=== PATIENT | female | born 1950 | race Caucasian/White ===

== ENCOUNTER 2017-09-26 21:59 | Emergency (ER) | payer BC, MEDICARE ==
[~2017-09-26] VITALS: Ht 162.6 cm; Wt 72.6 kg
[~2017-09-26 21:59] MED LIST: AMOX875 PO; ANTOXYBENA OT; ASPI325 PO; BUPR75 PO; CELE100 PO; CELE200 PO; CHOL10002 PO; DOCU100 PO; GABA300 PO; NAPR500 PO; OXYACE5T PO; PRAV10 PO; PRAV20 PO; Percocet 5-3251 EACH PO; RXANTBENOT AU; RXOXYACE PO
[2017-09-26 22:50] LABS: Influenza A Negative (NEGATIVE); Influenza B Positive (NEGATIVE)
[2017-09-26] MEDS ORDERED: Mucinex600 MG PO (23:12)
[2017-09-26] MEDS ORDERED: Cheratussin AC118 ML PO (23:12)
[2017-09-26] MEDS ORDERED: Keflex500 MG PO (23:12)
[2017-09-26] MEDS ORDERED: Pseudoephedrine30 MG PO (23:12)
[2018-06-01] MEDS ORDERED: Lomotil Tablet1 EACH PO (14:48)
[2018-06-01] MEDS ORDERED: HYOS.125 SL (14:48)
== END 2017-09-26 23:43 | disposition home or self-care (01) ==
LOC: ER 21:59
PROVIDERS: Physician Assistant
DX: J10.1 Influenza due to other identified influenza virus with other respiratory manifestations (principal); B95.4 Other streptococcus as the cause of diseases classified elsewhere; Z88.0 Allergy status to penicillin; Z88.2 Allergy status to sulfonamides; Z88.5 Allergy status to narcotic agent; Z79.899 Other long term (current) drug therapy; Z87.891 Personal history of nicotine dependence
CPT/HCPCS: 87430; 87804; 99283

== ENCOUNTER 2019-03-17 12:05 | Day surgery (SDC) | payer BC, MEDICARE ==
[~2019-03-17 12:05] MED LIST changes: +Cheratussin AC118 ML PO; +HYOS.125 SL; +Keflex500 MG PO; +Lomotil Tablet1 EACH PO; +Mucinex600 MG PO; +Pseudoephedrine30 MG PO
[2019-03-17] MEDS ORDERED: Ferosul325 MG PO (13:17)
[2019-03-17] MEDS ORDERED: TERB250 PO (13:18)
[2019-03-17] MEDS ORDERED: OMEPRAZOLE20 MG PO (13:19)
[2019-03-17] MEDS ORDERED: BUDE.25 PO (13:20)
[2019-03-17] MEDS ORDERED: ESCI10 PO (13:22)
[2019-03-17 17:59] LABS: Anion Gap 3 mmol/L (6-16); Blood Urea Nitrogen 11 mg/dL (8-24); Bun/Creatinine Ratio 21.5 (12.0-20.0); CO2, Blood 29 mmol/L (21-32); Calcium, Blood 8.2 mg/dL (8.5-10.1); Chloride, Blood 110 mmol/L (98-108); Creatinine, Blood 0.51 mg/dL (0.40-1.00); Glomerular Filtration Rate >60 (60-); Glucose, Blood 80 mg/dL (70-99); Sodium, Blood 142 mmol/L (136-145)
[2019-03-17 18:02] LABS: Potassium, Blood 4.6 mmol/L (3.5-5.5)
== END 2019-03-17 17:12 | disposition home or self-care (01) ==
LOC: ATC 12:05
PROVIDERS: Nurse Practitioner Family
DX: E87.6 Hypokalemia (principal); K50.90 Crohn's disease, unspecified, without complications
CPT/HCPCS: 80048; 96361; 96365; 96366; J3480; J7030

== ENCOUNTER 2019-06-14 08:12 | Day surgery (SDC) | payer BC, MEDICARE ==
[~2019-06-14 08:12] MED LIST changes: +BUDE.25 PO; +ESCI10 PO; +Ferosul325 MG PO; +Hydrochlorothia25 MG PO; +OMEPRAZOLE20 MG PO; +POTCHL20ER PO; +TERB250 PO
== END 2019-06-14 23:13 | disposition home or self-care (01) ==
LOC: PRE 08:12 → LAB 08:12 → PRE 23:13
DX: M17.11 Unilateral primary osteoarthritis, right knee (principal); Z01.818 Encounter for other preprocedural examination
CPT/HCPCS: 36415; 86850; 86900; 86901

== ENCOUNTER 2019-06-15 05:44 | Day surgery (SDC) | payer BC, MEDICARE ==
[~2019-06-15] VITALS: Ht 162.6 cm; Wt 76.7 kg
--- NOTE | 2019-06-15 06:33 | NUR ---
History, Chart, Medications and Allergies reviewed before start of procedure. Patient confirms NPO status and agrees with scheduled surgery.
--- NOTE | 2019-06-15 06:56 | NUR ---
NOZIN [employer]IST CHEMISTRY X3 AMPULES TO NARES BILAT.
--- NOTE | 2019-06-15 07:12 | NUR ---
KNEE HIGH LINDSEY HOSE AND CALF PAS TO LLE.
--- NOTE | 2019-06-15 18:07 | NUR ---
SHIFT SUMMARY PT WORKED WITH THERAPY, PAIN WELL CONTROLLED, PT REPEATS SELF AND IS SLIGHTLY GROGGY SO DISCUSSED CUTTING BACK TO 1 OXYCODONE NEXT DOSE GIVEN. BED ALARM PLACED. TOLERATING DIET. VOID x 2.
[2019-06-16 04:32] LABS: BASOPHILS ABSOLUTE AUTO 0.02 K/mm3 (0.00-0.23); BASOPHILS PERCENT AUTO 0 % (0-2); EOSINOPHILS ABSOLUTE AUTO 0.11 K/mm3 (0.00-0.68); EOSINOPHILS PERCENT AUTO 1 % (0-6); Hematocrit 32.1 % (33.0-51.0); Hemoglobin 9.9 g/dL (11.5-16.0); IMMATURE GRAN ABSOLUTE AUTO 0.04 K/mm3 (0.00-0.10); IMMATURE GRAN PERCENT AUTO 0 % (0-1); LYMPHOCYTES ABSOLUTE AUTO 0.86 K/mm3 (0.84-5.20); LYMPHOCYTES PERCENT AUTO 8 % (21-46); MONOCYTES ABSOLUTE AUTO 0.95 K/mm3 (0.16-1.47); MONOCYTES PERCENT AUTO 9 % (4-13); Mean Corpuscular HGB 28.9 pg (26.0-34.0); Mean Corpuscular HGB Conc 30.8 g/dL (31.5-36.5); Mean Corpuscular Volume 94 fL (80-100); Mean Platelet Volume 9.7 fL (9.1-12.4); NEUTROPHILS ABSOLUTE AUTO 8.33 K/mm3 (1.96-9.15); NEUTROPHILS PERCENT AUTO 81 % (41-73); Platelet Count 348 K/mm3 (150-400); RDW Coefficient Variation 14.6 % (11.7-14.2); RDW Standard Deviation 50.3 fL (35.1-46.3); Red Blood Cell Count 3.43 M/mm3 (3.80-5.20); White Blood Cell Count 10.31 K/mm3 (4.00-11.30)
[2019-06-16 04:54] LABS: Anion Gap 8 mmol/L (6-16); Blood Urea Nitrogen 14 mg/dL (8-24); Bun/Creatinine Ratio 19.3 (12.0-20.0); CO2, Blood 25 mmol/L (21-32); Calcium, Blood 8.5 mg/dL (8.5-10.1); Chloride, Blood 106 mmol/L (98-108); Creatinine, Blood 0.73 mg/dL (0.40-1.00); Glomerular Filtration Rate >60 (60-); Glucose, Blood 103 mg/dL (70-99); Potassium, Blood 3.5 mmol/L (3.5-5.5); Sodium, Blood 139 mmol/L (136-145)
--- NOTE | 2019-06-16 06:50 | NUR ---
LYING IN SEMI FOWLERS WITH EYES CLOSED. HAS DONE WELL THIS SHIFT AMBULATING TO BATHROOM AND BACK TO BED. PAIN HAS BEEN WELL MANAGED. DENIES FURTHER NEEDS OR WANTS AT THIS TIME. SAFETY MEASURES IN PLACE. WILL GIVE HAND OFF TO NCOMING SHIFT USING SBAR.
--- NOTE | 2019-06-16 07:33 | NUR ---
IN TO SEE PT AT THIS TIME.
[2019-06-16] MEDS ORDERED: Aspir 8181 MG PO (08:18)
[2019-06-16] MEDS ORDERED: Percocet 5-3251 EACH PO (08:19)
--- NOTE | 2019-06-16 10:55 | NUR ---
DISCHARGE SUMMARY PT D/C HOME WITH SPOUSE VIA WHEELCHAIR TODAY AT 1050. SCRIPTS, PERSONAL BELONGINGS, DISCHARGE INSTRUCTIONS, POLAR PAC, AND DRESSING PROVIDED TO PATIENT. DRESSING TO RIGHT KNEE C/D/I. CLEARED BY THERAPY THIS MORNING. TOLERATING REGULAR DIET. PAIN MANAGED WITH PO MEDICATIONS. VERBALIZED UNDERSTANDING AND DECLINED ANY FURTHER QUESTIONS OR CONCERNS AT THIS
== END 2019-06-16 10:45 | disposition home or self-care (01) ==
LOC: ORSCMMR 05:44 → ORD 07:30 → ORSCMMR 07:30 → SURS 10:16 → ORSCMMR 06-16 10:45 → SURS 06-16 10:45
PROVIDERS: Orthopaedic Surgery
PROC: 0SRC0JA Replacement of Right Knee Joint with Synthetic Substitute, Uncemented, Open Approach (ICD-10-PCS; principal; 2019-06-15 07:30)
DX: M17.11 Unilateral primary osteoarthritis, right knee (principal); M32.9 Systemic lupus erythematosus, unspecified; E78.00 Pure hypercholesterolemia, unspecified; Z79.899 Other long term (current) drug therapy; Z87.891 Personal history of nicotine dependence
CPT/HCPCS: 36415; 73560-RT; 80048; 85025; 88300; 94640; 94760; 97110; 97116; 97161; 97530; C1776; J0171; J0360; J0690; J0735; J1100; J1170; J1885; J2250; J2405; J2704; J2710; J2795; J3010; J7120

== ENCOUNTER 2019-12-07 07:07 | Emergency (ER) | payer BC, MEDICARE ==
[~2019-12-07] VITALS: Ht 162.6 cm; Wt 65.8 kg
[~2019-12-07 07:07] MED LIST changes: +Aspir 8181 MG PO
[2019-12-07 08:08] LABS: BASOPHILS ABSOLUTE AUTO 0.05 K/mm3 (0.00-0.23); BASOPHILS PERCENT AUTO 1 % (0-2); EOSINOPHILS ABSOLUTE AUTO 0.13 K/mm3 (0.00-0.68); EOSINOPHILS PERCENT AUTO 2 % (0-6); Hematocrit 40.5 % (33.0-51.0); Hemoglobin 12.8 g/dL (11.5-16.0); IMMATURE GRAN ABSOLUTE AUTO 0.04 K/mm3 (0.00-0.10); IMMATURE GRAN PERCENT AUTO 1 % (0-1); LYMPHOCYTES ABSOLUTE AUTO 1.21 K/mm3 (0.84-5.20); LYMPHOCYTES PERCENT AUTO 15 % (21-46); MONOCYTES ABSOLUTE AUTO 0.88 K/mm3 (0.16-1.47); MONOCYTES PERCENT AUTO 11 % (4-13); Mean Corpuscular HGB 25.9 pg (26.0-34.0); Mean Corpuscular HGB Conc 31.6 g/dL (31.5-36.5); Mean Corpuscular Volume 82 fL (80-100); Mean Platelet Volume 9.3 fL (9.1-12.4); NEUTROPHILS ABSOLUTE AUTO 5.73 K/mm3 (1.96-9.15); NEUTROPHILS PERCENT AUTO 71 % (41-73); Platelet Count 497 K/mm3 (150-400); RDW Coefficient Variation 16.5 % (11.7-14.2); RDW Standard Deviation 49.2 fL (35.1-46.3); Red Blood Cell Count 4.94 M/mm3 (3.80-5.20); White Blood Cell Count 8.04 K/mm3 (4.00-11.30)
[2019-12-07 08:29] LABS: Alanine Aminotransfer (ALT/SGP 14 U/L (12-78); Albumin, Blood 3.3 g/dL (3.4-5.0); Albumin/Globulin Ratio 0.7 (0.8-1.8); Alk Phos 97 U/L (50-136); Anion Gap 10 mmol/L (6-16); Aspartate Aminotrans (AST/SGOT 19 U/L (12-37); Bilirubin, Total 0.4 mg/dL (0.1-1.0); Blood Urea Nitrogen 24 mg/dL (8-24); Bun/Creatinine Ratio 31.8 (12.0-20.0); CO2, Blood 28 mmol/L (21-32); Calcium, Blood 8.6 mg/dL (8.5-10.1); Chloride, Blood 101 mmol/L (98-108); Creatinine, Blood 0.76 mg/dL (0.40-1.00); Globulin, Blood 4.6 g/dL (2.2-4.0); Glomerular Filtration Rate >60 (60-); Glucose, Blood 98 mg/dL (70-99); Sodium, Blood 139 mmol/L (136-145); Total Protein, Blood 7.9 g/dL (6.4-8.2); Troponin I <0.015 ng/mL (0.000-0.040)
[2019-12-07] MEDS ORDERED: TRAM50 PO (08:49)
== END 2019-12-07 08:59 | disposition home or self-care (01) ==
LOC: ER 07:07
PROVIDERS: Emergency Medicine
DX: R07.89 Other chest pain (principal); L93.0 Discoid lupus erythematosus; Z88.2 Allergy status to sulfonamides; Z88.5 Allergy status to narcotic agent; Z79.82 Long term (current) use of aspirin; Z79.899 Other long term (current) drug therapy; Z87.891 Personal history of nicotine dependence; Z88.0 Allergy status to penicillin
CPT/HCPCS: 36415; 71046; 80053; 84484; 85025; 93005; 93010; 96374; 99284-25; A9270-GY; J1885

== ENCOUNTER 2023-03-05 12:26 | Day surgery (SDC) | payer BC, MEDICARE ==
[~2023-03-05] VITALS: Ht 162.6 cm; Wt 67.6 kg
[~2023-03-05 12:26] MED LIST changes: +TRAM50 PO
[2023-03-05 15:05] VITALS: BP 118/61
== END 2023-03-05 14:45 | disposition home or self-care (01) ==
LOC: ORSCSDS 12:26
PROVIDERS: Internal Medicine Gastroenterology
PROC: 0DBK8ZX Excision of Ascending Colon, Via Natural or Artificial Opening Endoscopic, Diagnostic (ICD-10-PCS; principal; 2023-03-05 13:45)
DX: R19.7 Diarrhea, unspecified (principal); D12.2 Benign neoplasm of ascending colon; Z80.0 Family history of malignant neoplasm of digestive organs; K57.30 Diverticulosis of large intestine without perforation or abscess without bleeding; Z87.891 Personal history of nicotine dependence; Z79.899 Other long term (current) drug therapy; Z79.82 Long term (current) use of aspirin
CPT/HCPCS: 88305; J2704; J7120